=== PATIENT | female | born 1930 | race Caucasian/White ===

== ENCOUNTER 2019-02-10 11:04 | Inpatient (IN) | payer MEDICARE, OTHER ==
[~2019-02-10] VITALS: Ht 165.1 cm; Wt 96.9 kg
[2019-02-10 15:00] VITALS: BP 108/50
[2019-02-10] MEDS ORDERED: OMEP20CA10 PO (15:57)
[2019-02-10] MEDS ORDERED: RIVA15TA PO (15:57)
[2019-02-10] MEDS ORDERED: METO-269 PO (15:57)
[2019-02-10] MEDS ORDERED: PANT20TA2 PO (15:57)
[2019-02-10] MEDS ORDERED: ATOR20TA58 PO (15:57)
[2019-02-10] MEDS ORDERED: MULT1TAB52 PO (15:57)
[2019-02-10] MEDS ORDERED: FURO-68 PO (15:57)
[2019-02-10] MEDS ORDERED: GABA600T7 PO (15:57)
[2019-02-10] MEDS ORDERED: POTA10TA12 PO (15:57)
[2019-02-10] MEDS ORDERED: MAGN64TA6 PO (15:57)
[2019-02-10] MEDS ORDERED: ACETAMINOPHEN 325 MG TABLET. PO PRN (16:00)
[2019-02-10 17:09] LABS: BASO # 0.1 x10^3/uL (0.0-0.2); BASO % 1 % (0-3); EOS # 0.3 x10^3/uL (0.0-0.7); EOS % 3 % (0-3); HEMOGLOBIN 9.2 g/dL (12.0-15.5); LYMPH # 2.1 x10^3/uL (1.0-4.8); LYMPH % 23 % (24-48); MEAN CORPUSCULAR HEMOGLOBIN 29 pg (25-35); MEAN CORPUSCULAR HGB CONC 33 g/dL (31-37); MEAN CORPUSCULAR VOLUME 87 fL (79-100); MONO # 0.6 x10^3/uL (0.0-1.1); MONO % 6 % (0-9); NEUT # 6.1 x10^3uL (1.8-7.7); NEUT % 67 % (31-73); PLATELET COUNT 211 x10^3/uL (140-400); RED BLOOD COUNT 3.23 x10^6/uL (3.50-5.40); RED CELL DISTRIBUTION WIDTH 17.2 % (11.5-14.5); WHITE BLOOD COUNT 9.1 x10^3/uL (4.0-11.0)
[2019-02-10] MEDS: SUCRALFATE 1 GM TABLET. PO SCH ×2 (17:12→20:58)
[2019-02-10 17:37] LABS: ALBUMIN 2.8 g/dL (3.4-5.0); ALBUMIN/GLOBULIN RATIO 0.8 (1.0-1.7); CALCIUM 8.6 mg/dL (8.5-10.1); CREATININE 1.5 mg/dL (0.6-1.0); GFR 32.8; POTASSIUM 4.3 mmol/L (3.5-5.1); TOTAL BILIRUBIN 0.7 mg/dL (0.2-1.0); TOTAL PROTEIN 6.2 g/dL (6.4-8.2)
[2019-02-10] MEDS: IV NORMAL SALINE 1000ML BAG 1,000 ML IV SCH (18:08)
[2019-02-10] MEDS: PANTOPRAZOLE SODIUM IV DRIP 80 MG in IV NORMAL SALINE 100ML 100 ML IV SCH ×2 (18:09→23:53)
--- NOTE | 2019-02-10 18:55 | NUR ---
The patient, SIMEON REILLY, 88 y/o, F admitted by OBIE DAWN MD, was given written information regarding hospital policies, unit procedures and contact persons. Son at bedside. Patient arrived with Protonix gtt running at 10ml/hr. Written orders sent with patients chart from [facility].
[2019-02-10 19:00] VITALS: BP 182/80
[2019-02-10] MEDS: GABAPENTIN 300 MG CAPSULE. PO SCH (20:58)
[2019-02-10] MEDS: POTASSIUM CHLORIDE 10 MEQ TABLET.ER. PO SCH (20:58)
[2019-02-10 23:18] VITALS: BP 154/69
[2019-02-11 03:43] VITALS: BP 117/66
[2019-02-11 04:49] LABS: BASO % 0 % (0-3); EOS # 0.2 x10^3/uL (0.0-0.7); EOS % 2 % (0-3); HEMATOCRIT 28.2 % (36.0-47.0); HEMOGLOBIN 9.3 g/dL (12.0-15.5); LYMPH # 1.3 x10^3/uL (1.0-4.8); LYMPH % 13 % (24-48); MEAN CORPUSCULAR HEMOGLOBIN 28 pg (25-35); MEAN CORPUSCULAR HGB CONC 33 g/dL (31-37); MEAN CORPUSCULAR VOLUME 87 fL (79-100); MONO # 0.6 x10^3/uL (0.0-1.1); MONO % 6 % (0-9); NEUT # 7.9 x10^3uL (1.8-7.7); NEUT % 79 % (31-73); PLATELET COUNT 207 x10^3/uL (140-400); RED BLOOD COUNT 3.26 x10^6/uL (3.50-5.40); RED CELL DISTRIBUTION WIDTH 17.2 % (11.5-14.5)
[2019-02-11 05:24] LABS: CALCIUM 8.7 mg/dL (8.5-10.1); CREATININE 1.4 mg/dL (0.6-1.0); GFR 35.6; POTASSIUM 4.6 mmol/L (3.5-5.1)
[2019-02-11 07:10] VITALS: BP 120/70
[2019-02-11] MEDS: SUCRALFATE 1 GM TABLET. PO SCH ×2 (07:30→11:12)
[2019-02-11] MEDS: IV NORMAL SALINE 1000ML BAG 1,000 ML IV SCH (08:15)
[2019-02-11] MEDS: MAGNESIUM CHLORIDE ER 64 MG TABLET.ER PO SCH (08:17)
[2019-02-11] MEDS: POTASSIUM CHLORIDE 10 MEQ TABLET.ER. PO SCH ×2 (08:17→20:23)
[2019-02-11] MEDS: MULTIVITAMIN with MINERAL TABLET. PO SCH (08:17)
--- NOTE | 2019-02-11 09:52 | HP ---
ADMIT DATE: 02/10/2019 HISTORY OF PRESENT ILLNESS: The patient is an 88-year-old female patient who was seen at her primary care physician and was complaining of dizziness, who was noted to be extremely pale and has had lab work, which showed that her hemoglobin was 6.3, hematocrit 19.4 with an MCV of 87, normal white cell count and platelet. She was admitted directly to [facility], where she was transfused 2 units of packed RBCs. On questioning her further, the patient, however, denied any nausea, vomiting, diarrhea or constipation. Denied any hematemesis, melena or hematochezia; however, she did report that she has had black tarry stool for almost 3 weeks. She is on Xarelto for stroke prevention as she is known to have atrial fibrillation; however, she denied any intake of nonsteroidal anti-inflammatory medication. PAST MEDICAL HISTORY: Significant for hypertension, hyperlipidemia, atrial fibrillation, chronic kidney disease stage 3, generalized osteoarthritis. Her other medical problems include congestive heart failure, gastroesophageal reflux disease, and dementia. PAST SURGICAL HISTORY: Significant for bilateral cataract extraction, cholecystectomy, appendectomy, total abdominal hysterectomy, bilateral salpingo-oophorectomy, left total knee arthroplasty and back surgery for scoliosis with 2 rods and screws. FAMILY HISTORY: She has one sister who is younger and healthy, 1 brother younger and has throat cancer and still alive. She has one sister who of diabetes and alcoholism. Two brothers, 1 of pneumonia and the other with severe COPD. Her father at the age of 60 because of myocardial infarction. Mother at the age of 98 because of old age. SOCIAL HISTORY: She is , lives alone and fairly independent. She has a son and a daughter. She has never smoked, does not drink alcohol or use recreational drugs. She worked in [employer] for 38 years. REVIEW OF SYSTEMS: The patient denied any blurring of vision, cataract, glaucoma or macular degeneration. Denied any earache, tinnitus or sensorineural deafness. Denied any nosebleeds, stuffy nose or postnasal drip. Denied any sore throat, sore tongue, toothache, hoarseness of voice or difficulty swallowing. Denied any nausea, vomiting, diarrhea or constipation. Denied any hematemesis, melena or hematochezia. Denied any dysuria, frequency or hematuria. Denied any chest pain. Did complain of shortness of breath, but denied any orthopnea or paroxysmal nocturnal dyspnea. Denied any cough, phlegm or hemoptysis. Denied any chills, rigors or fever. Did complain of dizziness and lightheadedness. PHYSICAL EXAMINATION: GENERAL: On arrival to [facility], initially she was pale, but no jaundice, cyanosis, or thyromegaly. No jugular venous distension. No lower limb edema. VITAL SIGNS: Her heart rate was 105, blood pressure 124/71, temperature was 97.5, respiratory rate was 20, and oxygen saturation 100% on room air. HEAD, EYES, EARS, NOSE AND THROAT: Showed normocephalic, atraumatic. NECK: Supple. HEART: Showed normal first and second heart sounds. No gallop, rub or murmur. CHEST: Clear to auscultation. No crepitation or rhonchi. ABDOMEN: Distended, soft, nontender. No guarding or rigidity. No organomegaly. All hernial orifices intact. Bowel sounds normal. NEUROLOGIC: She was somewhat hard of hearing, but otherwise all her cranial nerves are intact. She is able to move her extremities without difficulty. LABORATORY DATA: On admission showed that her white cell count was 9000; hemoglobin 8.2; hematocrit 24.9; MCV was 87 and platelet count 210,000. Her chemistry on admission showed that her serum sodium was 140, potassium 3.2, chloride 101, bicarbonate 28, anion gap of 11, BUN 30, creatinine 1.7, estimated GFR was 28 mL per minute. Her glucose was 90, calcium was 8.7, magnesium was 1.6. His serum iron, TIBC and iron saturation are all consistent with iron deficiency anemia. Her total bilirubin was 0.7. AST, ALT, alkaline phosphatase were normal. Total protein was 6.6, albumin 3.1. TSH was 5.687 and her D-dimer was just 0.27. The patient's H and H were steadily dropping and yesterday her hemoglobin dropped down to 6.3 and 19.4 and she did receive 2 units of packed RBCs. Her chemistry as of yesterday showed a serum sodium 136, potassium 3.9, chloride 101, bicarbonate 27, anion gap of 8, BUN 29, creatinine 1.5, estimated GFR was 53 mL per minute, her glucose was 90, calcium was 8.4. ASSESSMENT AND PLAN: The patient was transferred to [facility] to monitor her H and H and transfuse as needed. We will check her lab work. We will consult the Gastroenterology as well as the Cardiology team. We will transfuse her as needed. OBIE DAWN MD DR: MINNA/lina JOB#: [id number] / [id number]
--- NOTE | 2019-02-11 11:03 | RAD ---
AP portable chest radiograph 02/11/2019 Clinical History: Worsening shortness of breath. An AP erect portable digital radiograph of the chest was obtained. Comparison study is dated 01/04/2019. The cardiac silhouette is borderline enlarged. Atherosclerotic calcification of the thoracic aorta is seen. Mitral annular calcifications are again noted. The thoracic aorta is mildly tortuous. Blunting of the left costophrenic angle is seen which may reflect a very small left pleural effusion, unchanged. No acute pulmonary infiltrate is seen. No pneumothorax is noted. The osseous structures are unchanged. Impression: No acute pulmonary infiltrate is seen. Electronically signed by: Jeremy Linda MD (02/11/2019 11:00 AM) [facility]
[2019-02-11 11:05] VITALS: BP 131/81
[2019-02-11 11:38] LABS: HEMATOCRIT 26.5 % (36.0-47.0); HEMOGLOBIN 8.5 g/dL (12.0-15.5)
--- NOTE | 2019-02-11 11:56 | PDOC2 ---
GI CONSULT Reason For Consult: RIANA HPI: HPI: 88 y/o female initally admitted to [facility] with anemia; w/u there with iron studies c/w RIANA. On review of old labs there, normal hemoglobin in November, though elevated RDW for some time. In December lower, but changed from warfarin to Xarelto then which seemed to accelerate the drop. Mentions "dark stools" for some time, maybe 3 weeks. Denies hematemesis or overt blood in stool. Hemoccult positive at [facility]. Denies heartburn; remote h/o dysphagia and underwent EGD/dilation remotely and left on antisecretory. Recalls no specific findings at EGD otherwise. No h/o PUD, liver or pancreatic disease. S/p marga. No tobacco and only rare alcohol use. No ASA or NSAID use. Denies ongoing diarrhea or constipation. Some weight loss, unintentional. Appetite OK. No N, V. 2-3 colonoscopies in her life, all recalled as negative and last 10+ years ago. GIFH positive for "ulcers" in mother, otherwise negative. PMH: PMH: HTN, HLP, A fib, CKD, OA. S/p ECCE OU, marga, appy, ROGERIO/BSO, left TKR, repair of scoliosis with hardware. FH: Family History: CAD Social History: Smoke: No ALCOHOL: rare Drugs: None ROS: GEN: Denies fevers, chills, sweats HEENT: Denies blurred vision, sore throat CV: Denies chest pain RESP: Denies shortness of air, cough GI: Per HPI : Denies hematuria, dysuria ENDO: As per HPI NEURO: Denies confusion, dizziness MSK: Weak/dizzy with the anemia SKIN: Denies jaundice, pruritus Vitals: Vitals: Vital Signs Date Time Temp Pulse Resp B/P (MAP) Pulse Ox O2 Delivery O2 Flow Rate FiO2 02/11/19 11:05 98.3 96 16 131/81 (98) 98 Room Air 98.3 02/11/19 08:00 2.0 Labs: Labs: Laboratory Tests Test 02/10/19 16:55 02/11/19 03:30 White Blood Count 9.1 x10^3/uL (4.0-11.0) 10.0 x10^3/uL (4.0-11.0) Red Blood Count 3.23 x10^6/uL (3.50-5.40) 3.26 x10^6/uL (3.50-5.40) Hemoglobin 9.2 g/dL (12.0-15.5) 9.3 g/dL (12.0-15.5) Hematocrit 28.0 % (36.0-47.0) 28.2 % (36.0-47.0) Mean Corpuscular Volume 87 fL (79-100) 87 fL (79-100) Mean Corpuscular Hemoglobin 29 pg (25-35) 28 pg (25-35) Mean Corpuscular Hemoglobin Concent 33 g/dL (31-37) 33 g/dL (31-37) Red Cell Distribution Width 17.2 % (11.5-14.5) 17.2 % (11.5-14.5) Platelet Count 211 x10^3/uL (140-400) 207 x10^3/uL (140-400) Neutrophils (%) (Auto) 67 % (31-73) 79 % (31-73) Lymphocytes (%) (Auto) 23 % (24-48) 13 % (24-48) Monocytes (%) (Auto) 6 % (0-9) 6 % (0-9) Eosinophils (%) (Auto) 3 % (0-3) 2 % (0-3) Basophils (%) (Auto) 1 % (0-3) 0 % (0-3) Neutrophils # (Auto) 6.1 x10^3uL (1.8-7.7) 7.9 x10^3uL (1.8-7.7) Lymphocytes # (Auto) 2.1 x10^3/uL (1.0-4.8) 1.3 x10^3/uL (1.0-4.8) Monocytes # (Auto) 0.6 x10^3/uL (0.0-1.1) 0.6 x10^3/uL (0.0-1.1) Eosinophils # (Auto) 0.3 x10^3/uL (0.0-0.7) 0.2 x10^3/uL (0.0-0.7) Basophils # (Auto) 0.1 x10^3/uL (0.0-0.2) 0.0 x10^3/uL (0.0-0.2) Sodium Level 135 mmol/L (136-145) 137 mmol/L (136-145) Potassium Level 4.3 mmol/L (3.5-5.1) 4.6 mmol/L (3.5-5.1) Chloride Level 101 mmol/L (98-107) 103 mmol/L (98-107) Carbon Dioxide Level 26 mmol/L (21-32) 20 mmol/L (21-32) Anion Gap 8 (6-14) 14 (6-14) Blood Urea Nitrogen 30 mg/dL (7-20) 28 mg/dL (7-20) Creatinine 1.5 mg/dL (0.6-1.0) 1.4 mg/dL (0.6-1.0) Estimated GFR (Cockcroft-Gault) 32.8 35.6 BUN/Creatinine Ratio 20 (6-20) Glucose Level 82 mg/dL (70-99) 106 mg/dL (70-99) Calcium Level 8.6 mg/dL (8.5-10.1) 8.7 mg/dL (8.5-10.1) Total Bilirubin 0.7 mg/dL (0.2-1.0) Aspartate Amino Transf (AST/SGOT) 15 U/L (15-37) Alanine Aminotransferase (ALT/SGPT) 11 U/L (14-59) Alkaline Phosphatase 87 U/L (46-116) Total Protein 6.2 g/dL (6.4-8.2) Albumin 2.8 g/dL (3.4-5.0) Albumin/Globulin Ratio 0.8 (1.0-1.7) Allergies: Coded Allergies: Amoxicillin (Verified Allergy, Unknown, 02/11/19) Sulfa (Sulfonamide Antibiotics) (Verified Allergy, Unknown, 02/11/19) Medications: Current Medications Medications (Trade) Dose Ordered Sig/Torsten Route PRN Reason Start Time Stop Time Status Last Admin Dose Admin Potassium Chloride (Klor-Con) 10 meq BID PO 02/10/19 21:00 02/11/19 08:17 Gabapentin (Neurontin) 600 mg QHS PO 02/10/19 21:00 02/10/19 20:58 Magnesium Chloride (Mag Delay) 64 mg DAILY PO 02/11/19 09:00 02/11/19 08:17 Multivitamins (Thera M Plus) 1 tab DAILY PO 02/11/19 09:00 02/11/19 08:17 Pantoprazole Sodium 80 mg/ Sodium Chloride 100 ml @ 10 mls/hr Q10H IV 02/10/19 16:00 02/10/19 23:53 Sucralfate (Carafate) 1 gm QIDACHS PO 02/10/19 16:30 02/11/19 11:12 Sodium Chloride 1,000 ml @ 75 mls/hr [id number] IV 02/10/19 16:30 02/11/19 09:17 DC 02/11/19 08:15 PE: GEN: NAD HEENT: Atraumatic, PERRLA LUNGS: CTAB HEART: IRRR, no murmurs ABD: NABS, S/ND/NT, no masses EXTREMITY: No edema SKIN: No rashes, no jaundice NEURO/PSYCH: A & O 3 A/P: A/P: IMP: RIANA, cause uncertain. Questionable h/o recent melena; recent drop in hemoglobin seems to be accelerated by recent addition of Xarelto. More than one normal colonoscopy historically, so statistically not high chance of colon cancer. Many years since any EGD--on PPI, so maybe not PUD, but vascular anomalies, and less likely malignancy possible. REC: Agreeable to EGD; will try to set up for tomorrow. Continue PPI. If no answer from EGD, could consider colonoscopy, but she's less than enthusiastic. Other pending. Thank you for allowing me to assist in the care of this patient. Please call if questions. MAR YBETH MARTINEZ MD February 11, 2019 11:56
--- NOTE | 2019-02-11 13:54 | PDOC2 ---
CARDIOLOGY CONSULT NOTE CHEIF COMPLAINT: Dizziness. HPI: 88 y.o woman presented to [place] for GIB. She came to [place] with Hgb less than 6 in the setting of xarelto use for afib. She denies any chest pain, dyspnea, orthopnea, PND or LE at home. No syncope. She does have dizziness. No other acute issues. PMHX: HTN Permanent afib SOCHX: No alcohol, tob or illicits. She lives by herself. FAMHX: NC CURRENT MEDS: Current Medications Medications (Trade) Dose Ordered Sig/Tortsen Start Time Stop Time Status Last Admin Dose Admin Acetaminophen (Tylenol) 650 mg PRN Q6HRS PRN 02/10/19 16:00 Gabapentin (Neurontin) 600 mg QHS 02/10/19 21:00 02/10/19 20:58 600 MG Magnesium Chloride (Mag Delay) 64 mg DAILY 02/11/19 09:00 02/11/19 08:17 64 MG Multivitamins (Thera M Plus) 1 tab DAILY 02/11/19 09:00 02/11/19 08:17 1 TAB Pantoprazole Sodium 80 mg/ Sodium Chloride 100 ml @ 10 mls/hr Q10H 02/10/19 16:00 02/10/19 23:53 10 MLS/HR Potassium Chloride (Klor-Con) 10 meq BID 02/10/19 21:00 02/11/19 08:17 10 MEQ Sodium Chloride 1,000 ml @ 75 mls/hr [id number] 02/10/19 16:30 02/11/19 09:17 DC 02/11/19 08:15 75 MLS/HR Sucralfate (Carafate) 1 gm QIDACHS 02/10/19 16:30 02/11/19 12:00 DC 02/11/19 11:12 1 GM ALLERGIES: Allergies Coded Allergies Type Severity Reaction Last Updated Verified Sulfa (Sulfonamide Antibiotics) Allergy Intermediate 02/11/19 Yes amoxicillin Allergy Intermediate 02/11/19 Yes ROS: negative for 07/01 systems reviewed unless otherwise noted above in HPI PHYSICAL EXAM: Vital Signs: Vital Signs Date Time Temp Pulse Resp B/P (MAP) Pulse Ox O2 Delivery O2 Flow Rate FiO2 02/11/19 11:05 98.3 96 16 131/81 (98) 98 Room Air 98.3 02/11/19 08:00 2.0 I & O Intake and Output 02/11/19 06:59 Intake Total 200 ml Balance 200 ml Intake Oral 200 ml # Voids 8 # Bowel Movements 1 Physical Exam: GEN.: No apparent distress. Alert and oriented. HEENT: Head is normocephalic, atraumatic NECK: Supple. LUNGS: Clear to auscultation. HEART: RRR, S1, S2 present. Peripheral pulses intact ABDOMEN: Soft, nontender. Positive bowel sounds. EXTREMITIES: Without any cyanosis. Trace edema NEUROLOGIC: Normal speech, normal tone PSYCHIATRIC: Normal affect, normal mood. SKIN: No ulcerations DIAGNOSTIC TESTING: EKG - Afib with RVR. labs reviewed. Hgb stable at > 8. ASSESSMENT: 1. Permanent atrial fibrillation 2. HTN 3. GIB PLAN: 1. Continue home metoprolol (started on 25mg q 6 hrs). Transfusion as needed. 2. Stop Xarelto. Ok to DC w/o Xarelto and f/u with primary tobacco acreage measurer to discuss reinitiation of anticoagulation versus WATCHMAN Device. Thanks. Pls call with questions. YOLANDE MONTANO MD February 11, 2019 13:54
--- NOTE | 2019-02-11 14:09 | PN ---
DATE: 02/11/2019 SUBJECTIVE: The patient is sitting at the edge of the bed comfortably in no apparent distress. She did apparently complained of shortness of breath this morning and was started on oxygen, felt well thereafter. She denied any chest pain, denied any nausea, vomiting, diarrhea or constipation. Denied any hematemesis, melena or hematochezia. She did receive 2 units of packed RBCs yesterday and was continued on IV fluid. Her hemoglobin on arrival was 9.2, hematocrit was 28 with normal white cell count and platelets. She was continued on IV fluid. PHYSICAL EXAMINATION: GENERAL: When I saw her this morning, she looked well, slightly pale, but no jaundice, cyanosis, or thyromegaly. No jugular venous distension. No limb edema. VITAL SIGNS: Her heart rate was 86, blood pressure was 120/78, temperature was 98.1, respiratory rate was 24 and oxygen saturation was 96% on room air. HEAD, EYES, EARS, NOSE AND THROAT: Showed normocephalic, atraumatic. NECK: Supple. HEART: Showed normal first and second heart sounds with no gallop, rub or murmur. CHEST: Clear to auscultation. No crepitation or rhonchi. ABDOMEN: Distended, soft, nontender. No guarding or rigidity. No organomegaly. Hernial orifice is intact. Bowel sounds normal. NEUROLOGIC: She is somewhat hard of hearing, but otherwise all cranial nerves intact. She moves extremities without difficulty. She is able to ambulate; however, she is very short of breath on exertion. Her intake and output are incompletely recorded. LABORATORY DATA: Her lab work this morning showed a white cell count of 10,000, hemoglobin 9.3, hematocrit 28.2, MCV 87 and platelet count 207,000. Her serum sodium is 137, potassium 4.6, chloride 103, bicarbonate 20, anion gap 14, BUN 28, and creatinine 1.4. Estimated GFR was 55 mL per minute. Her glucose 106 and calcium was 8.7. ASSESSMENT: Given that she is short of breath, I decided to discontinue her IV fluid. We will monitor her H and H, and obviously transfuse as needed. Await the evaluation by the discount clerk as well as the residential green building designer. We will monitor her H and H every 8 hours and we will transfuse her if hemoglobin drops to 7 or less than 7. OBIE DAWN MD DR: Nallely JOB#: [id number] / [id number]
[2019-02-11] MEDS: PANTOPRAZOLE SODIUM IV DRIP 80 MG in IV NORMAL SALINE 100ML 100 ML IV SCH (14:16)
[2019-02-11] MEDS: METOPROLOL TART IMMED RELEASE 25 MG TABLET. PO SCH ×2 (14:18→17:52)
[2019-02-11 15:10] VITALS: BP 130/79
[2019-02-11 19:15] VITALS: BP 133/76
[2019-02-11 19:31] LABS: HEMATOCRIT 26.9 % (36.0-47.0); HEMOGLOBIN 8.7 g/dL (12.0-15.5)
[2019-02-11] MEDS: GABAPENTIN 300 MG CAPSULE. PO SCH (20:23)
[2019-02-11 22:14] VITALS: BP 111/57
[2019-02-12] VITALS (16 sets, daily range): BP systolic 109–169; BP diastolic 41–90
[2019-02-12] MEDS: METOPROLOL TART IMMED RELEASE 25 MG TABLET. PO SCH ×4 (00:53→18:14)
[2019-02-12] MEDS: PANTOPRAZOLE SODIUM IV DRIP 80 MG in IV NORMAL SALINE 100ML 100 ML IV SCH ×2 (00:53→08:00)
[2019-02-12 04:40] LABS: HEMATOCRIT 26.1 % (36.0-47.0); HEMOGLOBIN 8.4 g/dL (12.0-15.5); RED CELL DISTRIBUTION WIDTH 17.5 % (11.5-14.5); WHITE BLOOD COUNT 7.2 x10^3/uL (4.0-11.0)
[2019-02-12 04:58] LABS: ALBUMIN 2.6 g/dL (3.4-5.0); ALBUMIN/GLOBULIN RATIO 0.8 (1.0-1.7); CALCIUM 8.9 mg/dL (8.5-10.1); CREATININE 1.7 mg/dL (0.6-1.0); GFR 28.4; POTASSIUM 4.7 mmol/L (3.5-5.1); TOTAL BILIRUBIN 0.7 mg/dL (0.2-1.0); TOTAL PROTEIN 5.8 g/dL (6.4-8.2)
[2019-02-12] MEDS ORDERED: IRON SUCROSE COMPLEX 200 MG in IV NORMAL SALINE 100ML 100 ML IV ONE (08:30)
[2019-02-12] MEDS ORDERED: fentaNYL PF VIAL 100 MCG/2 ML VIAL IV PRN ×2 (09:15)
[2019-02-12] MEDS ORDERED: MIDAZOLAM HCL/PF 2 MG/2 ML VIAL. IV PRN (09:15)
[2019-02-12] MEDS ORDERED: LIDOCAINE 1% PF 2 ML VIAL. ID PRN (09:15)
[2019-02-12] MEDS: IV RINGERS,LACTATED 1000ML 1,000 ML IV SCH ×2 (10:41→17:01)
[2019-02-12] MEDS ORDERED: LIDOCAINE 2% PF 5 ML VIAL. ONE (10:58)
[2019-02-12] MEDS ORDERED: PROPOFOL 20 ML IV ONE (10:58)
--- NOTE | 2019-02-12 11:20 | PDOC4 ---
PROCEDURE Procedure EGD/biopsies Indication: RIANA, "melena", history of several negative past colonoscopies. Meds: per anesthesia Findings: E--healed/inactive reflux at 43cm. G--Multiple fundic gland polyps (uniformly benign/typical appearance, so not biopsied). Biopsies antrum re: H.pylori. D--Normal to second portion; biopsies re: "atrophy?". Darlene. well. IMP: GERD No overt cause for the anemia seen. Colonic cause possible as is small bowel problem. REC: Await biopsies. PO iron. Continue other meds. Will discuss possibility of colonoscopy, but suspect she may decline. Thanks. MARY BETH MARTINEZ MD February 12, 2019 11:20
[2019-02-12] MEDS: POTASSIUM CHLORIDE 10 MEQ TABLET.ER. PO SCH ×2 (12:20→21:03)
[2019-02-12] MEDS: MAGNESIUM CHLORIDE ER 64 MG TABLET.ER PO SCH (12:22)
[2019-02-12] MEDS: MULTIVITAMIN with MINERAL TABLET. PO SCH (12:22)
--- NOTE | 2019-02-12 13:47 | NUR ---
SS following for discharge planning. SS reviewed pt chart. Pt is from home and is currently on room air. Pt was previously on services with [facility], ; fax [phone]. No PT/OT evaluations at this time. SS will continue to follow for discharge planning.
--- NOTE | 2019-02-12 15:40 | NUR ---
[facility]
[2019-02-12 18:31] LABS: HEMATOCRIT 26.6 % (36.0-47.0); HEMOGLOBIN 8.7 g/dL (12.0-15.5)
[2019-02-12] MEDS: GABAPENTIN 300 MG CAPSULE. PO SCH (21:02)
--- NOTE | 2019-02-12 21:53 | PN ---
DATE: 02/12/2019 SUBJECTIVE: The patient is resting slightly propped up in bed, in no apparent distress. Awake, alert. Denied any complaint, in particular, no nausea, no vomiting, no abdominal pain, no diarrhea or constipation. Denied any hematemesis, melena, hematochezia. She is n.p.o., scheduled for esophagogastroduodenoscopy. She was seen by the regional account executive who recommended discontinue Xarelto to initiate it later on after investigation of source of bleeding and/or consider a Watchman device. OBJECTIVE: GENERAL: On examining her, she was pale, but no jaundice, cyanosis, or thyromegaly. No jugular venous distension. No lower limb edema. VITAL SIGNS: Her heart rate was 71, blood pressure was 132/78, temperature was 97.4, respiratory rate was 18 and oxygen saturation was 100%. The rest of clinical examination is stable, has not really changed. Her intake and output are incompletely recorded. LABORATORY DATA: Her lab work this morning showed a serum sodium 137, potassium 4.7, chloride 103, bicarbonate 22, anion gap of 12, BUN 28, creatinine 1.7, estimated GFR was 28 mL per minute. Her glucose 115, calcium was 8.9. Total bilirubin, AST, ALT, alkaline phosphatase were normal. Her total protein was 5.8, albumin 2.6. Her white cell count was 7200, hemoglobin 8.4, hematocrit 26.1, MCV 87 and platelet count 227,000. ASSESSMENT: 1. Iron deficiency anemia. 2. Gastrointestinal bleed, the source of which is not clear. 3. Atrial fibrillation, rate controlled. Xarelto was discontinued. 4. Hypertension. 5. Hyperlipidemia. 6. Chronic kidney disease. 7. Generalized osteoarthritis. 8. Congestive heart failure. 9. Gastroesophageal reflux disease. 10. Dementia. PLAN: My plan is to continue monitoring her H and H every 8 hours as H and H is drifting down slowly and obviously we will transfuse as need be. I will start her also on Venofer to replace her iron. We will continue holding her Xarelto for now. OBIE DAWN MD DR: MINNA/lina JOB#: [id number] / [id number]
[2019-02-13 03:07] VITALS: BP 136/61
[2019-02-13] MEDS: METOPROLOL TART IMMED RELEASE 25 MG TABLET. PO SCH ×4 (05:37→18:00)
[2019-02-13 07:00] VITALS: BP_SYST 110; BP_SYST 137; BP_DIAS 47
[2019-02-13] MEDS: MULTIVITAMIN with MINERAL TABLET. PO SCH (08:14)
[2019-02-13] MEDS: MAGNESIUM CHLORIDE ER 64 MG TABLET.ER PO SCH (08:14)
[2019-02-13] MEDS: PANTOPRAZOLE 40 MG TABLET.DR. PO SCH (08:14)
[2019-02-13] MEDS: POTASSIUM CHLORIDE 10 MEQ TABLET.ER. PO SCH ×2 (08:14→21:01)
--- NOTE | 2019-02-13 09:39 | PDOC ---
Subjective: Subjective: No GI complaints though stools still look "black." Feels weak "from sitting around." Says she was told she will have a colonoscopy tomorrow. She and her son would like to pursue this while she's in the hospital. Ate a regular breakfast today. Objective: Vital Signs: Vital Signs Date Time Temp Pulse Resp B/P (MAP) Pulse Ox O2 Delivery O2 Flow Rate FiO2 02/13/19 08:30 Room Air 02/13/19 07:00 97.6 49 14 110/47 (68) 98 97.6 02/12/19 11:17 2 Labs: Laboratory Tests Test 02/12/19 18:25 Hemoglobin 8.7 g/dL Hematocrit 26.6 % Imaging: EGD 02/12 Indication: RIANA, "melena", history of several negative past colonoscopies. E--healed/inactive reflux at 43cm. G--Multiple fundic gland polyps (uniformly benign/typical appearance, so not biopsied). Biopsies antrum re: H.pylori. D--Normal to second portion; biopsies re: "atrophy?". IMP: GERD No overt cause for the anemia seen. Colonic cause possible as is small bowel problem. PE: GEN: NAD, sitting on edge of bed LUNGS: room air HEART: RR ABD: S/ND/NT NEURO/PSYCH: A & O 3 A/P: "Black stool" RIANA - EGD unrevealing as above, path pending A Fib, ELYSSA/CKD -- Need to review w/ Dr. Healy. Will also check for any records received from [facility]. ANTHONY DAVIS February 13, 2019 09:39
[2019-02-13 09:49] LABS: HEMATOCRIT 26.1 % (36.0-47.0); HEMOGLOBIN 8.4 g/dL (12.0-15.5)
--- NOTE | 2019-02-13 10:03 | NUR ---
SS following up with discharge planning. PT/OT evaluated and recommended home healthcare. Pt was previously on services with [facility]. SS will continue to follow for discharge planning.
[2019-02-13 10:19] LABS: CREATININE 1.7 mg/dL (0.6-1.0); GFR 28.4; POTASSIUM 4.3 mmol/L (3.5-5.1)
[2019-02-13] MEDS ORDERED: BISACODYL 5 MG TABLET.DR. PO ONE ×2 (10:45→13:45)
[2019-02-13] MEDS ORDERED: MAGNESIUM CITRATE 296 ML SOLUTION. PO PRN (10:45)
[2019-02-13 11:00] VITALS: BP 124/58
[2019-02-13] MEDS ORDERED: IRON SUCROSE COMPLEX 500 MG in IV NORMAL SALINE 250ML 250 ML IV ONE (13:00)
[2019-02-13] MEDS ORDERED: POLYETHYLENE GLYCOL 3350 BTL 238 GM POWDER PO ONE (13:00)
[2019-02-13 15:00] VITALS: BP 146/67
--- NOTE | 2019-02-13 15:06 | PATHOLOGY ---
[facility] Accession Number: [id number] . 01 Material submitted: . PART A: duodenum - DUODENAL BIOPSY PART B: stomach - ANTRUM BIOPSY . 01 Clinical history: . GI bleed . 02 Diagnosis: A. Duodenal biopsy: - No significant pathologic abnormalities. . B. Gastric biopsy, antrum: - Chronic gastritis, mild. (JPM:marlene; 02/13/2019) QMS/02/13/2019 . 02 Comment: Sections of the duodenal biopsy reveal segments of small intestine mucosa. Where best oriented, the mucosa villi appear normal. There are no sprue-like changes or significant inflammatory changes. . Sections of the gastric biopsy reveal gastric antral/body transition mucosa showing congestion and mild chronic inflammation. A properly controlled immunoperoxidase stain for Helicobacter is negative for Helicobacter organisms. (JPM:marlene; 02/13/2019) . . Special stain performed: Immunoperoxidase stain for Helicobacter on B1. . 02 Electronically signed: . Otoniel Duenas MD, Pathologist NPI- [id number] . 01 Gross description: . A. The specimen is received in formalin, labeled "Viola Wilcox, duodenal BX" and consists of 2 fragments of mari tissue measuring 0.5 x 0.3 x 0.2 cm and 0.4 x 0.4 x 0.2 cm which are entirely submitted in A1. . B. The specimen is received in formalin, labeled "Viola Wilcox, antrum BX" and consists of a fragment of zapata-mari tissue measuring 0.3 x 0.2 cm which is entirely submitted in B1. (SDY; 02/12/2019) SYU/SYU . 02 Pathologist provided ICD-10: K29.50 . 02 CPT . 076538, 802626, G26536 Specimen Comment: A courtesy copy of this report has been sent to Specimen Comment: [phone], , . Specimen Comment: Report sent to ,DR HILL / DR DAWN Performed at: 01 [facility] [address] [facility] [address], [place] [id number] MD Brad Marley MD Phone: [phone] Performed at: 02 [facility] [address] [place], [place] [id number] MD Otoniel Duenas MD Phone: [phone]
[2019-02-13 19:08] LABS: HEMATOCRIT 28.5 % (36.0-47.0); HEMOGLOBIN 8.9 g/dL (12.0-15.5)
[2019-02-13 19:25] VITALS: BP 112/54
[2019-02-13] MEDS: GABAPENTIN 300 MG CAPSULE. PO SCH (21:01)
[2019-02-13 23:30] VITALS: BP 123/58
--- NOTE | 2019-02-14 04:49 | PN ---
DATE: 02/13/2019 SUBJECTIVE: The patient is sitting comfortably in her recliner, in no apparent distress. She apparently has had upper GI endoscopy, which revealed she has healed inactive reflux at 43 cm, multiple fundic gland polyps in the form of benign that were not biopsied and she has had a biopsy of the antrum for Helicobacter pylori. However, the duodenum was normal to second portion. Biopsies without any atrophy and she apparently agreed to colonoscopy and she is now on clear liquid and the bowel prep will start this afternoon according to nursing staff. PHYSICAL EXAMINATION: GENERAL: When I examined her this morning, she looked well and was clearly in no apparent respiratory distress, pale. No jaundice, cyanosis or thyromegaly. No jugular venous distension. No lower limb edema. VITAL SIGNS: Her heart rate was 66, blood pressure 124/58, temperature was 97.5, respiratory rate was 16 and oxygen saturation was 100% on room air. HEAD, EYES, EARS, NOSE AND THROAT: Normocephalic and atraumatic. NECK: Supple. HEART: Showed normal first and second heart sounds. No gallop, rub or murmur. CHEST: Clear to auscultation. No crepitation or rhonchi. ABDOMEN: Distended, soft and nontender. NEUROLOGICAL: She was awake, alert, responding appropriately. All cranial nerves intact. She moves extremities without difficulty. She ambulates with a walker. Her intake over the last 24 hours was 916, no output was recorded as of this morning. LABORATORY DATA: Her hemoglobin was 8.4 and hematocrit 26.9. Her chemistry showed a serum sodium 137, potassium 4.3, chloride 104, bicarbonate 22, anion gap of 11, BUN 29, creatinine 1.7, estimated GFR was 28 mL per minute, her glucose 116 and calcium was 9. ASSESSMENT: 1. Iron-deficiency anemia, gastrointestinal bleeding, source of which is not clear. Her upper gastrointestinal endoscopy was unrevealing. 2. Atrial fibrillation, rate controlled. Xarelto was discontinued. 3. Hypertension. 4. Hyperlipidemia. 5. Chronic kidney disease. 6. Generalized osteoarthritis. 7. Congestive heart failure. 8. Gastroesophageal reflux disease. 9. Dementia. PLAN: To continue monitoring her H and H and transfuse her as needed. Continue with the Protonix. We will continue to hold her Xarelto. We will also continue with Venofer to replenish her iron stores. OBIE DAWN MD DR: MINNA/lina JOB#: [id number] / [id number]
[2019-02-14] MEDS: METOPROLOL TART IMMED RELEASE 25 MG TABLET. PO SCH ×3 (06:00→20:46)
[2019-02-14 06:11] VITALS: BP 110/69
[2019-02-14] MEDS ORDERED: IV RINGERS,LACTATED 1000ML 1,000 ML IV SCH (07:00)
[2019-02-14 07:28] LABS: ALBUMIN 2.6 g/dL (3.4-5.0); ALBUMIN/GLOBULIN RATIO 0.8 (1.0-1.7); CREATININE 1.5 mg/dL (0.6-1.0); GFR 32.8; POTASSIUM 3.8 mmol/L (3.5-5.1); TOTAL BILIRUBIN 0.4 mg/dL (0.2-1.0); TOTAL PROTEIN 5.8 g/dL (6.4-8.2)
[2019-02-14 07:29] LABS: HEMATOCRIT 26.2 % (36.0-47.0); HEMOGLOBIN 8.6 g/dL (12.0-15.5); RED CELL DISTRIBUTION WIDTH 17.8 % (11.5-14.5)
[2019-02-14] MEDS ORDERED: MAGNESIUM CITRATE 296 ML SOLUTION. PO ONE (07:30)
[2019-02-14] MEDS: PANTOPRAZOLE 40 MG TABLET.DR. PO SCH (08:18)
[2019-02-14] MEDS: POTASSIUM CHLORIDE 10 MEQ TABLET.ER. PO SCH ×2 (08:19→20:45)
[2019-02-14] MEDS: MAGNESIUM CHLORIDE ER 64 MG TABLET.ER PO SCH (08:19)
[2019-02-14] MEDS: MULTIVITAMIN with MINERAL TABLET. PO SCH (08:20)
[2019-02-14 11:00] VITALS: BP 111/75
[2019-02-14] MEDS ORDERED: IRON SUCROSE COMPLEX 200 MG in IV NORMAL SALINE 100ML 100 ML IV ONE (12:00)
[2019-02-14 15:00] VITALS: BP 121/67
[2019-02-14] MEDS ORDERED: PROPOFOL 20 ML IV ONE (16:53)
--- NOTE | 2019-02-14 17:21 | PDOC4 ---
PROCEDURE Procedure colonoscopy Indication: RIANA, negative EGD Meds: per anesthesia Findings: MICHAEL: normal \ --scope advanced to cecum. Mucosa normal. Multiple diverticula mid-transverse to distal sigmoid. No polyps, masses, avm's seen. Internal hemorrhoids on retroflex. Darlene. well. IMP: diverticulosis Internal hemorrhoids. Anemia likely from small bowel source and w/o symptoms, more apt to be AVM's. REC: PO iron bid to tid chronically. Transfuse prn. Could consider outpatient [facility]. Thanks. MARY BETH MARTINEZ MD February 14, 2019 17:21
[2019-02-14] MEDS: FERROUS SULFATE 325 MG TABLET. PO SCH (19:03)
[2019-02-14 19:27] VITALS: BP 138/51
[2019-02-14] MEDS: GABAPENTIN 300 MG CAPSULE. PO SCH (20:46)
[2019-02-14 22:46] VITALS: BP 136/79
--- NOTE | 2019-02-15 00:01 | PN ---
DATE: 02/14/2019 SUBJECTIVE: The patient is resting slightly propped up in bed, in no apparent distress. She is scheduled for colonoscopy this afternoon and she has had bowel preparation. Her stool is clearing up. According to nursing staff, her H and H is stable around 8.6 and 26.2. She denied any complaint, in particular denied any abdominal pain. Denied nausea or vomiting. OBJECTIVE: GENERAL: When I examined her, she looked pale, not jaundiced, cyanosis or thyromegaly. No jugular venous distention. No lower limb edema. VITAL SIGNS: Her heart rate was 64, blood pressure was 110/69, temperature was 97.6, respiratory rate was 18 and oxygen saturation was 96% on room air. HEAD, EYES, EARS, NOSE AND THROAT: Showed normocephalic, atraumatic. NECK: Supple. HEART: Showed normal first and second heart sounds. No gallop, rub or murmur. CHEST: Clear to auscultation. No crepitation or rhonchi. ABDOMEN: Distended, soft, nontender. No guarding or rigidity. No organomegaly. All hernial orifice intact. Bowel sounds normal. NEUROLOGIC: She is awake, alert, responding appropriately. All cranial nerves intact. She moves extremities without difficulty. She ambulates with a walker. Her intake was 1500, no output was recorded. LABORATORY DATA: Her lab work this morning showed a white cell count of 8000, hemoglobin 8.6, hematocrit 26, MCV 87 and platelet count of 243,000. Her chemistry showed a serum sodium 139, potassium 3.8, chloride 105, bicarbonate 21, anion gap of 13, BUN 25, creatinine 1.5, estimated GFR was 33 mL per minute. Her glucose was 87, calcium 9. Total bilirubin, AST, ALT, alkaline phosphatase were normal. Total protein was 5.8, albumin 2.6. ASSESSMENT: 1. Iron deficiency anemia due to gastrointestinal bleeding, the source of which is not clear. Her upper gastrointestinal endoscopy was unrevealing. 2. Atrial fibrillation, rate controlled. Xarelto was discontinued. 3. Hypertension. 4. Hyperlipidemia. 5. Chronic kidney disease. 6. Generalized osteoarthritis. 7. Congestive heart failure. 8. Gastroesophageal reflux disease. 9. Dementia. PLAN: My plan is to continue to monitor her H and H and transfuse as needed. Continue with IV Protonix. We will continue holding Xarelto. She did receive a total of almost 700 mg of Venofer. I will probably add another 500 today and repeat her lab work tomorrow as she is scheduled for colonoscopy today. OBIE DAWN MD DR: MINNA/lina JOB#: [id number] / [id number]
[2019-02-15 02:57] VITALS: BP 123/64
[2019-02-15 03:50] LABS: HEMATOCRIT 26.1 % (36.0-47.0); HEMOGLOBIN 8.5 g/dL (12.0-15.5); RED BLOOD COUNT 3.01 x10^6/uL (3.50-5.40); RED CELL DISTRIBUTION WIDTH 17.9 % (11.5-14.5); WHITE BLOOD COUNT 7.1 x10^3/uL (4.0-11.0)
[2019-02-15 04:03] LABS: CALCIUM 9.2 mg/dL (8.5-10.1); CREATININE 1.7 mg/dL (0.6-1.0); GFR 28.4
[2019-02-15 07:00] VITALS: BP 115/46
[2019-02-15] MEDS: FERROUS SULFATE 325 MG TABLET. PO SCH ×2 (08:12→14:43)
[2019-02-15] MEDS: PANTOPRAZOLE 40 MG TABLET.DR. PO SCH (08:12)
[2019-02-15] MEDS: POTASSIUM CHLORIDE 10 MEQ TABLET.ER. PO SCH (08:12)
[2019-02-15] MEDS: MULTIVITAMIN with MINERAL TABLET. PO SCH (08:12)
[2019-02-15] MEDS: MAGNESIUM CHLORIDE ER 64 MG TABLET.ER PO SCH (08:12)
[2019-02-15] MEDS: METOPROLOL TART IMMED RELEASE 25 MG TABLET. PO SCH (08:16)
[2019-02-15 11:00] VITALS: BP 104/47
--- NOTE | 2019-02-15 12:31 | NUR ---
SS following up with discharge planning. SS met with pt and family in room. PT/OT re-evaluated and recommended snf unit. SS discussed with pt and family. Pt now agreeable to snf unit. Pt reported that she did not want to return to [place]. SS discussed options. Pt and family agreeable to [facility] Bed, [phone]; fax [phone]. SS phoned and faxed referral and notified physician. SS will await discharge orders for snf unit and will proceed accordingly. Pt's RN notified.
--- NOTE | 2019-02-15 13:00 | PDOC ---
Subjective: Subjective: Asks me if I can "pull some strings" so she can just go home. Tolerating PO, no complaints. Objective: Objective: D/w RN - ?DC to swing bed at [facility] Vital Signs: Vital Signs Date Time Temp Pulse Resp B/P (MAP) Pulse Ox O2 Delivery O2 Flow Rate FiO2 02/15/19 08:16 63 119/61 02/15/19 07:00 97.5 18 97 Room Air 97.5 02/15/19 02:57 2.0 Labs: Laboratory Tests Test 02/15/19 02:20 White Blood Count 7.1 x10^3/uL Red Blood Count 3.01 x10^6/uL Hemoglobin 8.5 g/dL Hematocrit 26.1 % Mean Corpuscular Volume 87 fL Mean Corpuscular Hemoglobin 28 pg Mean Corpuscular Hemoglobin Concent 33 g/dL Red Cell Distribution Width 17.9 % Platelet Count 238 x10^3/uL Sodium Level 141 mmol/L Potassium Level 4.0 mmol/L Chloride Level 108 mmol/L Carbon Dioxide Level 23 mmol/L Anion Gap 10 Blood Urea Nitrogen 22 mg/dL Creatinine 1.7 mg/dL Estimated GFR (Cockcroft-Gault) 28.4 Glucose Level 90 mg/dL Calcium Level 9.2 mg/dL Diagnosis: A. Duodenal biopsy: - No significant pathologic abnormalities. B. Gastric biopsy, antrum: - Chronic gastritis, mild. Comment: Sections of the duodenal biopsy reveal segments of small intestine mucosa. Where best oriented, the mucosa villi appear normal. There are no sprue-like changes or significant inflammatory changes. Sections of the gastric biopsy reveal gastric antral/body transition mucosa showing congestion and mild chronic inflammation. A properly controlled immunoperoxidase stain for Helicobacter is negative for Helicobacter organisms. Imaging: Colonoscopy 02/14 MICHAEL: normal --scope advanced to cecum. Mucosa normal. Multiple diverticula mid-transverse to distal sigmoid. No polyps, masses, avm's seen. Internal hemorrhoids on retroflex. IMP: diverticulosis Internal hemorrhoids. Anemia likely from small bowel source and w/o symptoms, more apt to be AVM's. PE: GEN: NAD, up to chair, eating lunch - points out that she doesn't like broccoli LUNGS: CTAB HEART: RRR ABD: NABS, S/ND/NT NEURO/PSYCH: A & O 3 A/P: RIANA - suspect SB source -- DC per primary on iron, consider outpt [facility]BCE. ANTHONY DAVIS February 15, 2019 13:00
--- NOTE | 2019-02-15 13:39 | SNU/HH DC ---
DISCHARGE ORDERS DISCHARGE INFORMATION: DISCHARGE DATE: February 15, 2019 FINAL DIAGNOSIS severe iron defeciency anemia gastrointestinal bleeding atrial fibrillation Hypertension Hyperlipidemia CONDITION ON DISCHARGE: Stable CODE STATUS: Code Status: Full LONG-TERM: SNF STAY <30 DAYS: Yes POST DISCHARGE ORDERS: ACTIVITY ORDERS: Resume previous activity DIET AFTER DISCHARGE: Cardiac TREATMENT/EQUIPMENT ORDERS: ADAPTIVE EQUIPMENT NEEDED: Walker Physical Therapy For: Evalulation/Treatment Occupational Therapy For: Evaluation/Treatment DISCHARGE MEDICATIONS: Home Meds Reported Medications Rivaroxaban (XARELTO) 15 Mg Tablet, 15 MG PO DAILY for A fib, TAB 02/10/19 Potassium Chloride (POTASSIUM CHLORIDE) 10 Meq Tablet.er, 10 MEQ PO BID for supplement, TAB 02/10/19 Pantoprazole Sodium (PROTONIX) 20 Mg Tablet.dr, 40 MG PO DAILY for GERD, TAB 02/10/19 Omeprazole (OMEPRAZOLE) 20 Mg Capsule.dr, 20 MG PO DAILY PRN for HEARTBURN / GAS, CAP 02/10/19 Multivitamin (MULTIVITAMINS) 1 Each Tablet, 1 EACH PO DAILY for supplement, TAB 02/10/19 Metoprolol Succinate (TOPROL XL) 50 Mg Tab.er.24h, 50 MG PO DAILY for FOR HYPERTENSION, #30 TAB 0 Refills 02/10/19 Magnesium Chloride (MAG64) 64 Mg Tablet.er, 64 MG PO DAILY for supplement, TAB.SR 02/10/19 Gabapentin (GABAPENTIN) 600 Mg Tablet, 600 MG PO HS for NEUROGENIC PAIN, TAB 02/10/19 Furosemide (LASIX) 40 Mg Tablet, 40 MG PO DAILY for CHF, TAB 02/10/19 Atorvastatin Calcium (ATORVASTATIN CALCIUM) 20 Mg Tablet, 20 MG PO HS for cholesterol, #30 TAB 0 Refills 02/10/19 OBIE DAWN MD February 15, 2019 13:39
[2019-02-15] MEDS ORDERED: METO25TA4 PO (13:40)
[2019-02-15] MEDS ORDERED: FERR325T14 PO (13:44)
--- NOTE | 2019-02-15 14:05 | NUR ---
SS following up with discharge planning. Pt accepted at [facility]. Discharge orders received. SS phoned and faxed discharge orders to [facility], [phone]; fax [phone]. Pt will discharge today and go to [facility] at 1500 via [facility] transport, [phone]. Pt, pt's daughter, and pt's RN notified.
--- NOTE | 2019-02-15 14:16 | NUR ---
Patient refused multiple attempts to get cleaned up prior to discharge.
--- NOTE | 2019-02-15 19:47 | NUR ---
Report called to Janey at [facility] and faxed updated discharge med list. Patient left via hospital transportation.
--- NOTE | 2019-02-15 22:08 | DS ---
DATE OF DISCHARGE: 02/15/2019 HOSPITAL COURSE: The patient is an 88-year-old female patient who was seen at Dr. Duran's office, was extremely pale and in fact she was indeed extremely anemic with hemoglobin of only 5.7. She received 2 units of packed RBCs and was transferred to [facility] for further evaluation and treatment. She is known to have atrial fibrillation and she was on Xarelto that was held and we did consult the chief commercial officer as well as the process coach. She has had an upper GI endoscopy, which showed mild gastroesophageal reflux disease. She has multiple fundic gland polyps uniform and benign with typical appearance that were not biopsied and the duodenum was normal to second portion and the chief commercial officer recommended to start iron therapy. She also underwent colonoscopy and again the colonoscope was advanced to the cecum. Mucosa is normal. 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 Internal hemorrhoids on retroflex. The patient tolerated the procedure very well. She has diverticulosis, internal hemorrhoids, anemia, likely from small bowel source and without symptoms more appropriate to be arteriovenous malformation. Her H and H has stabilized. She received a total of about 1000 mg of IV Venofer and as she lives alone and continues to be very debilitated and deconditioned, a decision was made to admit her to swing bed in [facility] to continue the process of rehabilitation before she can go home. PHYSICAL EXAMINATION: GENERAL: When I saw her this afternoon, she looked pale, but no jaundice, cyanosis, or thyromegaly. No jugular venous distention. No lower limb edema. VITAL SIGNS: Her heart rate was 63, blood pressure 119/61, temperature 97.5, respiratory rate was 18 and oxygen saturation was 97% on 2 liters of oxygen by nasal cannula. HEAD, EYES, EARS, NOSE AND THROAT: Showed normocephalic, atraumatic. NECK: Supple. HEART: Showed normal first and second heart sounds with no gallop, rub or murmur. CHEST: Clear to auscultation. No crepitation or rhonchi. ABDOMEN: Distended, soft, nontender. No guarding or rigidity. No organomegaly. All hernial orifice intact. Bowel sounds normal. NEUROLOGIC: She is awake, alert, responding appropriately. All cranial nerves intact. EXTREMITIES: She moves extremities without difficulty. She ambulates with a walker. LABORATORY DATA: Her lab work this morning showed a white cell count 7100, hemoglobin 8.5, hematocrit 26, MCV 87 and platelet count 238,000. Her chemistry showed a serum sodium 141, potassium 4, chloride 108, bicarbonate 23, anion gap of 10, BUN 22, creatinine 1.7, estimated GFR was 228 mL per minute. Her glucose was 90, calcium was 9.2. DISCHARGE MEDICATIONS: She was discharged to swing bed at [facility] to continue on polyethylene glycol 17 g daily, metoprolol tartrate 25 mg twice a day, ferrous sulfate 325 mg 3 times a day with meals, magnesium citrate 296 mL once as needed for constipation, Protonix 40 mg daily, multivitamin 1 tablet once a day, magnesium chloride 64 mg once a day, gabapentin 600 mg at bedtime, potassium chloride 10 mEq twice a day and Tylenol 650 mg every 6 hours. FINAL DISCHARGE DIAGNOSES: 1. Iron deficiency anemia due to gastrointestinal bleeding, the source of which is not clear. 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 2. Atrial fibrillation, rate controlled and Xarelto was discontinued. 3. Hypertension. 4. Hyperlipidemia. 5. Chronic kidney disease. 6. Generalized osteoarthritis. 7. Congestive heart failure. 8. Gastroesophageal reflux disease. 9. Dementia. OBIE DAWN MD DR: MINNA/lina JOB#: [id number] / [id number]
[2019-02-16] MEDS ORDERED: POLYETHYLENE GLYCOL 3350 17 GM PACKET. PO SCH (09:00)
== END 2019-02-15 15:00 | disposition swing bed (61) | DRG 377 ==
LOC: 1 WEST ICU 15:01 → 2 NORTH 15:11
PROVIDERS: ADMIT Internal Medicine; ATTEND Internal Medicine
PROC: 0DB68ZX Excision of Stomach, Via Natural or Artificial Opening Endoscopic, Diagnostic (ICD-10-PCS; 2019-02-12)
PROC: 0DB98ZX Excision of Duodenum, Via Natural or Artificial Opening Endoscopic, Diagnostic (ICD-10-PCS; principal; 2019-02-12 11:00)
PROC: 0DJD8ZZ Inspection of Lower Intestinal Tract, Via Natural or Artificial Opening Endoscopic (ICD-10-PCS; 2019-02-14)
DX: K55.21 Angiodysplasia of colon with hemorrhage (principal); N17.0 Acute kidney failure with tubular necrosis; I13.0 Hypertensive heart and chronic kidney disease with heart failure and stage 1 through stage 4 chronic kidney disease, or unspecified chronic kidney disease; K57.31 Diverticulosis of large intestine without perforation or abscess with bleeding; I48.2 Chronic atrial fibrillation; D50.0 Iron deficiency anemia secondary to blood loss (chronic); E78.5 Hyperlipidemia, unspecified; F03.90 Unspecified dementia, unspecified severity, without behavioral disturbance, psychotic disturbance, mood disturbance, and anxiety; I50.9 Heart failure, unspecified; K21.9 Gastro-esophageal reflux disease without esophagitis; Z96.652 Presence of left artificial knee joint; K64.8 Other hemorrhoids; M15.9 Polyosteoarthritis, unspecified; N18.3 Chronic kidney disease, stage 3 (moderate); Z80.8 Family history of malignant neoplasm of other organs or systems; Z82.49 Family history of ischemic heart disease and other diseases of the circulatory system; Z82.5 Family history of asthma and other chronic lower respiratory diseases; Z83.3 Family history of diabetes mellitus; Z90.710 Acquired absence of both cervix and uterus; Z98.41 Cataract extraction status, right eye; Z98.42 Cataract extraction status, left eye; Z90.49 Acquired absence of other specified parts of digestive tract; Z90.722 Acquired absence of ovaries, bilateral; Z88.1 Allergy status to other antibiotic agents; Z88.2 Allergy status to sulfonamides
CPT/HCPCS: 36415; 43239; 45378; 71045; 80048; 80053; 85014; 85018; 85025; 85027; 88305; 88342; C9113; J1756; J2001; J2704; J7030; J7050; J7120; 97110; 97116; 97530; 97535